=== PATIENT | female | born 1945 | race Caucasian/White ===

== ENCOUNTER 2018-08-14 09:10 | Emergency (ER) | payer MEDICARE, BC ==
[~2018-08-14] VITALS: Ht 162.6 cm; Wt 90.0 kg
[~2018-08-14 09:10] MED LIST: FAMO-128 PO; ONDA4TAB6 PO
[2018-08-14 09:12] VITALS: BP 138/65
== END 2018-08-14 11:51 | disposition home or self-care (01) ==
LOC: ER 09:11
DX: R04.0 Epistaxis (principal); Z79.899 Other long term (current) drug therapy
CPT/HCPCS: 99281